=== PATIENT | female | born 1995 | race Caucasian/White ===

== ENCOUNTER → 2024-07-18 07:19 | Outpatient (CLI) | payer OTHER, SELFPAY ==
--- NOTE | 2024-07-18 07:23 | DI.ECHO.S_ITS ---
[facility] : : [address] : : [place] : : [id number] : : Phone: [phone] Echocardiogram Report + + :Name: LEONARD GROSS Study Date: 07/18/2024 Height: 64 in : :[facility] ReadingLocation: Weight: 185 lb : : Gender: Female BSA: 1.9 m2 : :: 1995 Age: 29 yrs BP: 111/87 mmHg: :Reason For Study: HYPOTENSION : :Ordering Physician: TRACIE, : :DAJA Performed By: Candi Mercado : :Referring: DAJA HODGES : + + Interpretation Summary 1. The left ventricular contractility is mildly compromised. Estimate ejection fraction is 40 to 45% with mild global hypokinesis. No left ventricular hypertrophy is identified. Normal diastolic function. 2. The right ventricular contractility is normal. 3. Moderate left ventricular enlargement noted. All other cardiac chambers are of normal size. 4. No significant valvular abnormalities. 5. No obvious intracardiac shunts. 6. No obvious intracardiac masses nor thrombi. 7. No hemodynamically significant pericardial effusion. 8. Low right-sided filling pressures. Conclusion: Dilated cardiomyopathy with mildly compromised left ventricular systolic function Procedure: A two-dimensional transthoracic echocardiogram with color flow and Doppler was performed. The study quality was technically adequate. There is no prior echocardiogram noted for this patient. The patient was in sinus rhythm with heart rates between 58-75 bpm during the exam. Left Ventricle: The left ventricle is moderately dilated. The ejection fraction is estimated to be 40-45%. There is mild global hypokinesis of the left ventricle. Diastolic parameters suggest probable normal left ventricular diastolic function and normal filling pressures. Right Ventricle: The right ventricle is normal in size and function. Atria: The left atrial size is normal. Right atrial size is normal. There is no Doppler evidence for an interatrial shunt. Mitral Valve: The mitral valve is normal in structure and function. There is trace mitral regurgitation. Aortic Valve: The aortic valve is trileaflet. The aortic valve opens well. There is no aortic valve stenosis. No aortic regurgitation is present. Tricuspid Valve: The tricuspid valve is normal in structure and function. There is trace tricuspid regurgitation. Pulmonary artery pressures cannot be estimated because of the lack of a measurable TR jet velocity. Pulmonic Valve: The pulmonic valve leaflets are thin and pliable; valve motion is normal. There is mild pulmonic regurgitation. Great Vessels: The aortic root is normal size. The dimensions of the ascending aorta are normal. The IVC is of normal diameter and collapses greater than 50% with a sniff. This suggests a low right atrial pressure of 3 mm Hg. Pericardium/ Pleura There is no pericardial effusion. There is no pleural effusion. MMode/2D Measurements & Calculations LVIDd: 5.5 cm LVOT diam: 2.0 cm LVIDs: 3.9 cm Ao root diam: 2.7 cm FS: 29.7 % asc Aorta Diam: 2.8 cm EPSS: 0.93 cm Ao Arch Diam (Prox Trans): 2.5 cm IVSd: 0.52 cm LVPWd: 0.65 cm LV gutierrez. diameter/BSA (cm/m^2): 2.9 LV sys. diameter/BSA (cm/m^2): 2.1 LA A2 area: 15.2 cm2 RA long axis: 4.6 cm LA A4 area: 13.5 cm2 RA area: 12.7 cm2 LA length (vol): 4.7 cm RA vol: 30.1 ml LA vol: 37.4 ml RA : 15.9 ml/m2 LA vol index: 19.8 ml/m2 IVC diam: 1.4 cm RVD1 (basal): 3.2 cm RVD2 (mid): 2.9 cm TAPSE: 1.9 cm Doppler Measurements & Calculations Ao V2 max: 99.9 cm/sec LVOT Max Sulaiman: 68.4 cm/sec Ao V2 mean: 75.5 cm/sec LV V1 max P.9 mmHg Ao max P.0 mmHg LV V1 VTI: 16.1 cm Ao mean P.4 mmHg ZOILA(I,D): 2.3 cm2 Ao V2 VTI: 22.4 cm ZOILA(V,D): 2.2 cm2 sev ratio: 0.72 ZOILA indexed to BSA (cm^2/m^2): 1.2 MV E max sulaiman: 53.4 cm/sec PA V2 max: 82.5 cm/sec MV A max sulaiman: 49.7 cm/sec PA V2 mean: 58.6 cm/sec MV E/A: 1.1 PA mean P.5 mmHg Med Peak E' Sulaiman: 10.2 cm/sec PA pr(Accel): 3.6 mmHg E/E' med: 5.2 Lat Peak E' Sulaiman: 11.1 cm/sec E/E' lat: 4.8 E/e' average: 5.0 MV dec time: 0.19 sec SV(LVOT): 52.5 ml Reading Physician:
--- NOTE | 2024-07-18 07:33 | EKG_ITS ---
[address] [id number] [address] [address] Test Date: 2024-07-18 Pat Name: Dilcia Lozano Department: DEFAULT Room: Gender: Female Pouncing Lathe Operator: PDV : 1995 Requested By: Order Number: [id number] Reading MD: Eder Macias Measurements Intervals [place] Rate: 66 P: 43 FL: 148 QRS: -1 QRSD: 88 T: 20 QT: 430 QTc: 450 Interpretive Statements Normal sinus rhythm Electronically Signed On 07-18-2024 9:23:24 PDT by Eder Macias
[2024-07-18 09:04] LABS: Free T3, Triiodothyronine Free 3.25 pg/mL (2.77-5.27); Free T4, Direct Thyroxine 0.85 ng/dL (0.78-2.19)
[2024-07-18 09:18] LABS: Thyroid Stimulating Hormone 2.15 uIU/mL (0.47-4.68)
== END ==
PROVIDERS: Referring Provider Chiropractor; Visit Provider Chiropractor
DX: I37.1 Nonrheumatic pulmonary valve insufficiency (principal); I95.9 Hypotension, unspecified; E03.9 Hypothyroidism, unspecified
CPT/HCPCS: 36415; 84439; 84443; 84481; 93005; 93306